=== PATIENT | female | born 1960 | race Hispanic/Latino ===

== ENCOUNTER 2018-05-31 18:02 | Emergency (ER) | payer SELFPAY ==
[2018-05-31] MEDS ORDERED: IBUPROFEN 600 MG TABLET ONE (18:33)
== END 2018-05-31 19:49 | disposition home or self-care (01) ==
LOC: EDH 18:02
DX: J10.1 Influenza due to other identified influenza virus with other respiratory manifestations (principal)
CPT/HCPCS: 87804